=== PATIENT | female | born 1995 | race Caucasian/White ===

== ENCOUNTER 2017-11-05 11:53 | Outpatient (CLI) | END 2017-11-05 14:25 | disposition home or self-care (01) ==

== ENCOUNTER 2017-11-13 15:35 | Observation (INO) | END 2017-11-14 11:35 | disposition home or self-care (01) ==

== ENCOUNTER 2017-11-15 05:00 | Inpatient (IN) | END 2017-11-17 19:00 | disposition home or self-care (01) | DRG 775 ==

== ENCOUNTER 2019-01-24 15:51 | Inpatient (IN) | payer OTHER ==
[~2019-01-24] VITALS: Ht 160 cm; Wt 89.5 kg
[~2019-01-24 15:51] MED LIST: CALC600T5 PO; PNV11TAB PO
--- NOTE | 2019-01-24 20:56 | HP ---
Date/Time of Note Date/Time of Note DATE: 01/24/19 TIME: 20:52 OB - History Hx of Present Chief Complaint: elevated BP in clinic Estimated Due Date: Feb 01, 2019 : 4 Para: 1 Spontaneous : 2 Therapeutic : 0 Care: Good Care Ultrasounds: Normal mid trimester US Obstetrical Complications: None Medical Complications: None Past Family/Social History * Past Medical, Surgical, Family and Obstetric Histories reviewed from chart. GBS Status: Negative OB Admission Exam Physical Exam HEENT: WNL Heart: Rhythm Normal Lungs: Clear, Equal Abdomen: WNL Extremities: Normal Reflexes: Normal Cervical Dilatation: 4cm Effacement: 50% Station: -2 Membranes: Intact Heart Rate: 120's Accelerations: Accelerations Present Decelerations: No Decelerations Varibility: Moderate Last 72 hours Lab Results CBC & BMP 01/24/19 17:13 Liver Function Test 01/24/19 17:13 Alanine Aminotransferase (ALT/SGPT) 10 L Albumin 3.7 Alkaline Phosphatase 181 H Aspartate Amino Transf (AST/SGOT) 18 Direct Bilirubin 0.00 Total Protein 6.6 OB Assessment/Plan Reason for admission: other Other Assessment: Early labor Gestational hypertension Plan: Other Other plan: Augment labor QASIM SHAHID MD Jan 24, 2019 20:56
[2019-01-24] MEDS ORDERED: LACTATED RINGER'S 1,000 ML IV PRN (21:18)
[2019-01-24] MEDS ORDERED: LIDOCAINE 1% (MPF) 30 ML INJ INJ PRN (21:30)
[2019-01-24] MEDS ORDERED: OXYTOCIN 30 UNITS/LR 500 ML IV PRN (21:30)
[2019-01-24] MEDS ORDERED: BUTORPHANOL 1 MG INJ IV PRN (21:30)
[2019-01-24] MEDS ORDERED: BUTORPHANOL 2 MG INJ IV PRN (21:30)
[2019-01-24] MEDS ORDERED: IBUPROFEN 600 MG TAB PO PRN (21:30)
[2019-01-24] MEDS ORDERED: CARBOPROST 250 MCG INJ IM PRN (21:30)
[2019-01-24] MEDS ORDERED: OXYTOCIN 30 UNITS/LR 500 ML IV SCH ×2 (21:30)
[2019-01-24] MEDS ORDERED: METHYLERGONOVINE 0.2 MG INJ IM PRN (21:30)
[2019-01-24] MEDS ORDERED: MISOPROSTOL 200 MCG TAB PR PRN (21:30)
[2019-01-24] MEDS: LACTATED RINGER'S 1,000 ML IV SCH (23:26)
--- NOTE | 2019-01-24 23:26 | PREAC ---
Date/Time of Note Date/Time of Note DATE: 01/24/19 TIME: 23:25 Anesthesia Eval and Record Evaluation Time Pre-Procedure Interview DATE: 01/24/19 TIME: 23:25 Age 23 Sex female NPO: 8 hrs Preoperative diagnosis intrauterine Planned procedure labor epidural Past Medical History Past Medical History: Includes : : (4), Para: (1), PIH (possible ) Surgery & Anesthesia Issues No known issue Meds Anticoagulation: No Beta Jasmina within 24 hr: No Reason Beta Jasmina not given: Pt. not on B-Jasmina Reported Medications Calcium Carbonate (CALCIUM) 600 Mg Tablet, 600 MG PO, TAB 11/05/17 [id number] ( 19) 1 Each Tablet, 1 TAB PO DAILY, TAB 11/05/17 Current Medications Lactated Ringer's 1,000 ml @ 125 mls/hr Q8H IV ; Start 01/24/19 at 21:18 Butorphanol Tartrate (Stadol) 1 mg Q2H PRN IV .PAIN; Start 01/24/19 at 21:30 Butorphanol Tartrate (Stadol) 2 mg Q2H PRN IV .PAIN; Start 01/24/19 at 21:30 Lidocaine (Xylocaine 1% (Mpf)) 30 ml ONCE PRN INJ .EPISIOTOMY; Start 01/24/19 at 21:30 Oxytocin/Lactated Ringer's 500 ml @ 500 mls/hr ONCE POST IV ; Start 01/24/19 at 21:30 Oxytocin/Lactated Ringer's 500 ml @ 125 mls/hr POST IV ; Start 01/24/19 at 21:30 Ibuprofen (Motrin) 600 mg ONCE PRN PO .PAIN 1-5; Start 01/24/19 at 21:30 Lactated Ringer's 1,000 ml @ 2,000 mls/hr Q30M PRN IV .ANESTHESIA Last administered on 01/24/19at 22:59; Admin Dose 2,000 MLS/HR; Start 01/24/19 at 21:18 Oxytocin/Lactated Ringer's 500 ml @ 0 mls/hr ONCE PRN IV .VAGINAL BLEEDING; Start 01/24/19 at 21:30 Methylergonovine Maleate (Methergine) 0.2 mg ONCE PRN IM .VAGINAL BLEEDING; Start 01/24/19 at 21:30 Carboprost Tromethamine (Hemabate) 250 mcg ONCE PRN IM .VAGINAL BLEEDING; Start 01/24/19 at 21:30 Misoprostol (Cytotec) 1,000 mcg ONCE PRN DE .VAGINAL BLEEDING; Start 01/24/19 at 21:30 Meds reviewed: Yes Allergies Coded Allergies: guaifenesin (Verified Allergy, Unknown, 11/05/17) rash/heart races Allergies Reviewed: Yes Labs/Studies Labs Reviewed: Reviewed by anesthesiologist Result Diagram: 01/24/19 1713 01/24/19 1713 Laboratory Tests 01/24/19 17:13 Blood Bank Test 01/24/19 17:11 Antibody Screen NEGATIVE Blood Type A NEGATIVE Rh Immune Globulin Candidate NO test: N/A Pre-procedure Exam Airway: Adequate mouth opening, Adequate thyromental dist Mallampati: Mallampati II Teeth: Normal Lung: Normal Heart: Normal ASA Physical Status ASA physical status: 2 Emergency: None Planned Anesthetic Neuraxial: Epidural Planned Pain Management Epidural, Parenteral pain med Pre-operative Attestations Prior to commencing anesthesia and surgery, the patient was re-evaluated, there was verification of: *The patient's identity *The results of appropriate recent lab work and preoperative vital signs *The above evaluation not changing prior to induction *Anesthetic plan, risk benefits, alternative and complications discussed with patient/family; questions answered; patient/family understands, accepts and wishes to proceed. EMILY ODELL MD Jan 24, 2019 23:26
[2019-01-24] MEDS ORDERED: NALOXONE (0.4 MG/ML) INJ IV PRN (23:30)
[2019-01-24] MEDS ORDERED: FENTAnyl 2MCG/ML-ROPIV 0.2% 100 ML BAG EPI SCH (23:30)
[2019-01-24] MEDS ORDERED: DIPHENHYDRAMINE 50 MG INJ IV PRN (23:30)
[2019-01-24] MEDS ORDERED: ONDANSETRON 4 MG INJ IV PRN (23:30)
[2019-01-24] MEDS ORDERED: FENTAnyl 2MCG/ML-ROPIV 0.2% 100 ML ONE (23:31)
[2019-01-25 00:06] VITALS: Ht 160 cm; Wt 89.5 kg
[2019-01-25 00:07] VITALS: BP 141/69; PULSE 102; RESP 18
--- NOTE | 2019-01-25 00:07 | TRIAGE ---
OB Triage Datetime Report Generated by CPN: 01/25/2019 00:07 Datetime: 01/24/2019 22:44 Labor Evaluation Frequency: 2-4 Monitor Mode: External Quality: Mild Pattern: Normal: <= 5 Contractions in 10 Minutes Resting Tone Goldfield: Relaxed Heart Rate FHR Baseline Rate: 135 Monitor Mode: External US FHR Baseline Changes: No Baseline Change Variability: Moderate 6-25 bpm Accelerations: 15X15 Decelerations: None Category: Category I Pain Presence: Intermittent Pain Type: Contraction Pain Location: Abdomen Datetime: 01/24/2019 22:20 Stage of : OB Triage Datetime: 01/24/2019 21:49 Stage of : OB Triage Labor Evaluation Frequency: 2-4 Monitor Mode: External Quality: Moderate Pattern: Normal: <= 5 Contractions in 10 Minutes Resting Tone [place]field: Relaxed Heart Rate FHR Baseline Rate: 140 Monitor Mode: External US FHR Baseline Changes: No Baseline Change Variability: Moderate 6-25 bpm Accelerations: 15X15 Decelerations: None Category: Category I Pain Assessment Pain Scale: 6 Pain Presence: Intermittent Pain Type: Contraction Pain Location: Abdomen Datetime: 01/24/2019 21:00 Stage of : OB Triage Datetime: 01/24/2019 20:51 Vaginal Exam Dilatation (cms): 3.5 Datetime: 01/24/2019 20:48 Labor Evaluation Frequency: 2-4 Monitor Mode: External Duration (sec)2399: 60 Quality: Moderate Pattern: Normal: <= 5 Contractions in 10 Minutes Resting Tone Goldfield: Relaxed Heart Rate FHR Baseline Rate: 140 Monitor Mode: External US FHR Baseline Changes: No Baseline Change Variability: Moderate 6-25 bpm Accelerations: 15X15 Decelerations: None Category: Category I Vaginal Exam Dilatation (cms): 3.4 Effacement (%): 50 Station: -2 Exam By: Dr Georges Membrane Status: Intact Vaginal Bleeding: None Cervix, Consistency: Soft Cervix, Position: Posterior Presentation 'A': Cephalic Datetime: 01/24/2019 19:50 Stage of : OB Triage Monitor Mode: External Resting Tone Goldfield: Relaxed Heart Rate FHR Baseline Rate: 140 Monitor Mode: External US Pain Assessment Pain Scale: 6 Pain Presence: Intermittent Pain Type: Cramping Pain Location: Abdomen Datetime: 01/24/2019 19:22 Stage of : OB Triage Datetime: 01/24/2019 17:29 Maternal Assessment Level of Consciousness: Fully Conscious DTR's/Clonus: DTRs 1+ Headache: Denies Blurred Vision: No Respiratory Effort: Unlabored Breath Sounds, Left: Clear and Equal Breath Sounds, Right: Clear and Equal Nausea/Vomiting: Denies RUQ Epigastric Pain: Denies Facial Edema: None Labor Evaluation Frequency: 5-7 Monitor Mode: External Duration (sec)2399: 50-70 Quality: Moderate Pattern: Normal: <= 5 Contractions in 10 Minutes Resting Tone Goldfield: Relaxed Heart Rate FHR Baseline Rate: 140 Monitor Mode: External US Variability: Moderate 6-25 bpm Accelerations: 15X15 Decelerations: None Category: Category I Pain Assessment Pain Scale: 5 Pain Presence: Intermittent Pain Type: Cramping Pain Location: Abdomen Pain Goal: 3 Membrane Status: Intact Datetime: 01/24/2019 17:06 Vaginal Exam Dilatation (cms): 1.0 Effacement (%): 50 Station: -2 Exam By: LULU RASHID Vaginal Bleeding: None Cervix, Consistency: Soft Cervix, Position: Midposition Presentation 'A': Cephalic Datetime: 01/24/2019 17:00 Stage of : OB Triage Maternal Assessment Level of Consciousness: Fully Conscious DTR's/Clonus: DTRs 1+ Headache: Denies Blurred Vision: No Nausea/Vomiting: Denies RUQ Epigastric Pain: Denies Facial Edema: None Labor Evaluation Frequency: 4-6 Monitor Mode: External Duration (sec)2399: 50-90 Quality: Mild Pattern: Normal: <= 5 Contractions in 10 Minutes Resting Tone Goldfield: Relaxed Heart Rate FHR Baseline Rate: 140 Monitor Mode: External US Variability: Moderate 6-25 bpm Accelerations: 15X15 Decelerations: None Category: Category I Pain Assessment Pain Scale: 5 Pain Presence: Intermittent Pain Type: Contraction Pain Location: Back Pain Goal: 3 Membrane Status: Intact Datetime: 01/24/2019 16:30 Stage of : OB Triage Maternal Assessment Level of Consciousness: Fully Conscious DTR's/Clonus: DTRs 1+ Headache: Denies Breath Sounds, Left: Clear and Equal Breath Sounds, Right: Clear and Equal Nausea/Vomiting: Denies RUQ Epigastric Pain: Denies Labor Evaluation Frequency: 4-6 Monitor Mode: External Duration (sec)2399: 50-70 Duration (sec)2399: 50-90 Quality: Moderate Quality: Mild Pattern: Normal: <= 5 Contractions in 10 Minutes Resting Tone Goldfield: Relaxed Heart Rate FHR Baseline Rate: 140 Monitor Mode: External US Variability: Moderate 6-25 bpm Accelerations: 15X15 Decelerations: None Category: Category I Pain Assessment Pain Scale: 5 Pain Presence: Intermittent Pain Type: Cramping Pain Type: Contraction Pain Location: Abdomen Pain Location: Back Pain Goal: 3 Membrane Status: Intact Datetime: 01/24/2019 15:59 Assessment Type: Triage Maternal Assessment Level of Consciousness: Fully Conscious DTR's/Clonus: DTRs 2+; No Clonus Headache: Denies Blurred Vision: No Respiratory Effort: Unlabored; Regular Rhythm; Equal Expansion Breath Sounds, Left: Clear and Equal Breath Sounds, Right: Clear and Equal Nausea/Vomiting: Denies RUQ Epigastric Pain: Denies Lower Extremities Edema: None Degree: None Upper Extremities Edema: None Degree: None Facial Edema: None Fall Risk Assessment History of Falling: (0) No Secondary Diagnosis: (0) No Ambulatory Aid: (0) Bedrest/Nurse Assist IV Therapy: (0) No Gait: (0) Normal/Bedrest/Immobile Mental Status: (0) Oriented to Own Ability Fall Score: 0 Fall Risk Score Definition: No Risk: No action required Datetime: 01/24/2019 15:53 EGA: 38.6 Datetime: 01/24/2019 15:43 Stage of : OB Triage Time of Arrival: 01/24/2019 15:43 Arrived By: Ambulatory Arrived From: Office Chief Complaint: PT CAME IN FROM [facility] OFFICE DUE TO HIGH B/P AT CLINIC AND SOME UC'S. PT DENIES ANY HEADACHES, EPIGASTRI PAIN OR BLURRED VISION AT THIS TIME, DENIES ANY GENERALIZED SWELLING WELL. PS TATES THAT BABY IS MOVING OK Movement: Present Contractions: Regular Rupture of Membranes: Denies Vaginal Bleeding: None Vaginal Discharge: Denies Recent Sexual Intercouse: Denies Abdominal Trauma: Not Applicable Patient Complaints: Contractions Additional Patient Complaints: NONE Time Provider Notified: 01/24/2019 15:59 Provider Notified: RASHIDA Initial Plan: PIH PANEL, BPP AND RENAN
--- NOTE | 2019-01-25 00:11 | PAC ---
Date/Time of Note Date/Time of Note DATE: 01/25/19 TIME: 00:11 Post-Anesthesia Notes Post-Anesthesia Note Activity: WNL Respiratory function: WNL Cardiovascular function: WNL Mental status: Baseline Pain reasonably controlled: Yes Hydration appropriate: Yes Nausea/Vomiting absent: Yes Comments BP: 122/65 HR: 84 RR: 16 T: 98 SaO2: 99% EMILY ODELL MD Jan 25, 2019 00:11
[2019-01-25] MEDS: LACTATED RINGER'S 1,000 ML IV SCH ×2 (04:25→12:29)
[2019-01-25] MEDS ORDERED: ROPIVACAINE 0.2% 100ML BAG EPI SCH (09:00)
[2019-01-25] MEDS ORDERED: FENTAnyl 2MCG/ML-ROPIV 0.2% 100 ML BAG EPI SCH (09:00)
[2019-01-25] MEDS ORDERED: NALOXONE (0.4 MG/ML) INJ IV PRN ×2 (09:00→19:30)
[2019-01-25] MEDS ORDERED: DIPHENHYDRAMINE 50 MG INJ IV PRN ×2 (09:00→19:30)
[2019-01-25] MEDS ORDERED: ONDANSETRON 4 MG INJ IV PRN ×2 (09:00→19:30)
[2019-01-25] MEDS ORDERED: MINERAL OIL LIGHT 10 ML VIAL TOP ONE (15:00)
[2019-01-25] MEDS ORDERED: OXYTOCIN 30 UNITS/LR 500 ML IV SCH (17:30)
[2019-01-25] MEDS ORDERED: CEFAZOLIN 2 GM/50 ML (PMX) 50 ML IVPB SCH (17:30)
[2019-01-25] MEDS ORDERED: CEFAZOLIN 2 GM/50 ML (PMX) 50 ML IVPB ONE (17:37)
--- NOTE | 2019-01-25 18:03 | HPN ---
Date/Time of Note Date/Time of Note DATE: 01/25/19 TIME: 17:59 Interval H&P Admission Note Pt. seen H&P reviewed: Systems changes noted below iup at 39 wks ga, gestational hypertension, in labor, arrest in dilation, suspected macrosomia, Judaism- decline any blood products, all the risk including but not limited to explained to patient JULIO CÉSAR MONTAÑO MD Jan 25, 2019 18:03
[2019-01-25] MEDS ORDERED: OXYTOCIN 10 UNIT INJ ONE ×2 (18:27→18:36)
[2019-01-25] MEDS ORDERED: morphine SULFATE/PF (10 MG/10 ML) INJ ONE (18:32)
[2019-01-25] MEDS ORDERED: PHENYLephrine (100 MCG/ML) 5ML SYG ONE (18:46)
--- NOTE | 2019-01-25 19:08 | OPPN ---
Date/Time of Note Date/Time of Note DATE: 01/25/19 TIME: 19:05 Operative Report Planned Procedure Procedure date Jan 25, 2019 Procedure(s) primary low transverse CD Performed by see signature line Computer Art Instructor: DHEERAJ OWEN 2nd Computer Art Instructor none Anesthesiologist: ONOFRE MOURA MD Pre-procedure diagnosis iup at 39 wks ga, gestational hypertension, in labor, arrest in dilation, suspected macrosomia, Voodoo- [id number] Anesthesia Type: [id number] epidural Post-Procedure Post-procedure diagnosis same Findings a viable female 9/9, weight 9lb 6 oz. normal uterus tubes and ovaries Estimated Blood Loss: 500 - 600 mls (500) Specimen(s) none Grafts/Implant(s) none Complication(s) none JULIO CÉSAR MONTAÑO MD Jan 25, 2019 19:08
[2019-01-25] MEDS: OXYTOCIN 30 UNITS/LR 500 ML IV SCH (19:09)
--- NOTE | 2019-01-25 19:21 | PAC ---
Date/Time of Note Date/Time of Note DATE: 01/25/19 TIME: 19:21 Post-Anesthesia Notes Post-Anesthesia Note Last documented vital signs Vital Signs Date Temp Pulse Resp B/P (MAP) Pulse Ox O2 O2 Flow FiO2 Time Delivery Rate 01/25/19 98.3 102 18 141/69 Room Air 00:07 (93) Activity: WNL Respiratory function: WNL Cardiovascular function: WNL Mental status: Baseline Pain reasonably controlled: Yes Hydration appropriate: Yes Nausea/Vomiting absent: Yes Comments BP:134/67, P:78, Spo2:100%, T:98,8 ONOFRE MOURA MD Jan 25, 2019 19:21
[2019-01-25] MEDS ORDERED: LANOLIN HPA 1 PKT TOP PRN (19:30)
[2019-01-25] MEDS ORDERED: OXYTOCIN 30 UNITS/LR 500 ML IV PRN (19:30)
[2019-01-25] MEDS ORDERED: morphine 2 MG INJ IV PRN (19:30)
[2019-01-25] MEDS ORDERED: NACL 0.9% 3 ML SYG IV SCH (19:30)
[2019-01-25] MEDS ORDERED: OXYCODONE/ACETAMINOPHEN (5/325) TAB PO PRN (19:30)
[2019-01-25] MEDS ORDERED: METHYLERGONOVINE 0.2 MG INJ IM PRN (19:30)
[2019-01-25] MEDS ORDERED: MISOPROSTOL 200 MCG TAB PR PRN (19:30)
[2019-01-25] MEDS ORDERED: CARBOPROST 250 MCG INJ IM PRN (19:30)
[2019-01-25] MEDS: KETOROLAC 30 MG INJ IV PRN (19:41)
--- NOTE | 2019-01-25 19:46 | OPR ---
DATE OF OPERATION: 01/25/2019 PREOPERATIVE DIAGNOSES: 1. Intrauterine at 39 weeks gestational age. 2. Gestational hypertension in labor. 3. Arrest in dilation. 4. Suspected macrosomia, Buddhism. POSTOPERATIVE DIAGNOSES: 1. Intrauterine at 39 weeks gestational age. 2. Gestational hypertension in labor. 3. Arrest in dilation. 4. Suspected macrosomia, Buddhism. PROCEDURE: Primary low transverse delivery. SURGEON: Julio César Dennis MD COMPRESSED GAS EQUIPMENT MECHANIC: Dr. Castillo. ANESTHESIA: Epidural. COMPLICATIONS: None. ESTIMATED BLOOD LOSS: 500 mL. FINDINGS: A viable female, 9 and 9 respectively at 1 and 5 minutes, weight 9 pounds 6 ounces. Normal uterus, tubes and ovaries. DESCRIPTION OF PROCEDURE: After explaining the risks, benefits and alternatives, the patient and consent signed in chart, the patient was taken to the operating room where epidural anesthesia was found to be adequate. She was then prepared and draped in normal sterile fashion in dorsal position with a leftward tilt. A Pfannenstiel skin incision was then made with a scalpel and carried to the underlying of the fascia. The fascia was incised in midline and incision was extended laterally with Caballero scissors. The superior aspect of the fascial incision was grasped with curved clamps and elevated and the underlying rectus muscles dissected off bluntly. Attention was then turned to the inferior aspect of incision, which in similar fashion was grasped, tented up with curved clamps and the rectus muscles dissected off bluntly. The muscle was then in midline, peritoneum identified, tented up sharply with Metzenbaum scissors. The incision was then extended superiorly and inferiorly with good visualization of the bladder. The bladder blade was then inserted and the vesicouterine peritoneum identified, grasped with pickups and sharply with Metzenbaum scissors. This incision was extended laterally and the bladder flap created digitally. The bladder blade was then reinserted and inspection of the lower segment incised in transverse fashion with a scalpel. The uterine incision was extended laterally. The bladder blade was removed. The nose and mouth were suctioned and cord clamped and cut. The infant was handed off to waiting sanitation truck cleaner. The placenta was then removed. The uterus was exteriorized and cleared of all clots and debris. The uterine incision was repaired with 1-0 chromic in a running locked fashion. A second layer of same suture was used to imbrication obtaining excellent hemostasis. The uterus was then returned to the abdomen. The gutters were cleared of all clots. The peritoneum and rectus abdominis was reapproximated with 2-0 Vicryl in interrupted fashion. The fascia was reapproximated with 0 Vicryl in running fashion. The subcutaneous tissue was reapproximated with 2-0 plain gut in a running fashion. The skin was closed with absorbable anjana. The patient tolerated procedure well. Sponge, lap and needle counts correct x2. The patient was taken to recovery room in stable condition. Dictated By: JULIO CÉSAR WAGNER/HÉCTOR Conf#: [id number] DID#: [id number] MTDD
[2019-01-25] MEDS: CEFAZOLIN 2 GM/50 ML (PMX) 50 ML IVPB SCH (19:53)
[2019-01-25 22:00] VITALS: BP 130/72; PULSE 85; RESP 19
[2019-01-26] MEDS: OXYTOCIN 30 UNITS/LR 500 ML IV SCH (00:04)
[2019-01-26] MEDS: CEFAZOLIN 2 GM/50 ML (PMX) 50 ML IVPB SCH ×2 (04:10→11:37)
[2019-01-26 04:30] VITALS: BP 121/56; PULSE 102; RESP 19
[2019-01-26] MEDS: KETOROLAC 30 MG INJ IV PRN ×2 (05:33→11:42)
[2019-01-26 08:00] VITALS: BP 110/53; PULSE 89; RESP 16
[2019-01-26 12:00] VITALS: BP 116/57; PULSE 98; RESP 16
[2019-01-26 16:00] VITALS: BP 123/70; PULSE 99; RESP 16
[2019-01-26] MEDS: OXYCODONE/ACETAMINOPHEN (5/325) TAB PO PRN (18:52)
[2019-01-26 20:30] VITALS: BP 110/61; PULSE 111; RESP 19
--- NOTE | 2019-01-26 22:41 | QN ---
Documentation Comment progress note pod 1 patient seen and evaluated aao X 3 no complaints positive ambulation and voiding tolerating diet vs stable afebrile ab soft nt uterine fundus firm at umbillicus dressing clean and dry a/ sp primary cd pod 1 stable afebrile p/ iron supplement encourage ambulation JULIO CÉSAR MONTAÑO MD Jan 26, 2019 22:41
[2019-01-27] MEDS: IBUPROFEN 600 MG TAB PO SCH ×4 (00:28→18:03)
[2019-01-27] MEDS: OXYCODONE/ACETAMINOPHEN (5/325) TAB PO PRN (03:05)
[2019-01-27 04:30] VITALS: BP 107/52; PULSE 92; RESP 18
[2019-01-27 08:00] VITALS: BP 112/59; PULSE 87; RESP 20
--- NOTE | 2019-01-27 08:06 | QN ---
Documentation Comment progress note pod 2 patient seen and evaluated aao X 3 no complaints positive ambulation and voiding tolerating diet vs stable afebrile ab soft nt uterine fundus firm at umbilicus dressing clean and dry extremity no edema no calf tenderness a/ sp primary cd pod 2 stable afebrile p/remove dressing today encourage ambulation JULIO CÉSAR MONTAÑO MD Jan 27, 2019 08:06
[2019-01-27] MEDS: FERROUS SULFATE (EC) 325 MG TAB PO SCH ×2 (09:53→20:20)
[2019-01-27 16:00] VITALS: BP 115/65; PULSE 101; RESP 20
[2019-01-27 20:15] VITALS: BP 127/76; PULSE 111; RESP 18
[2019-01-28] MEDS: IBUPROFEN 600 MG TAB PO SCH ×3 (01:00→12:27)
[2019-01-28 04:30] VITALS: BP 129/72; RESP 18
[2019-01-28 07:50] VITALS: BP 119/63; PULSE 95; RESP 20
--- NOTE | 2019-01-28 09:11 | QN ---
Documentation Comment progress note pod 3 patient seen and evaluated aao X 3 no complaints positive ambulation and voiding tolerating diet vs stable afebrile ab soft nt uterine fundus firm at umbilicus c/d/i extremity no edema no calf tenderness a/ sp primary cd pod 3 stable afebrile p/discharge home tomorrow JULIO CÉSAR MONTAÑO MD Jan 28, 2019 09:11
--- NOTE | 2019-01-28 09:11 | PD.PPDC ---
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
[2019-01-28] MEDS: FERROUS SULFATE (EC) 325 MG TAB PO SCH (09:14)
--- NOTE | 2019-01-28 10:43 | DS ---
DATE OF ADMISSION: 01/24/2019 DATE OF DISCHARGE: 01/28/2019 PRIMARY DIAGNOSIS: Intrauterine at 39 weeks gestational age, gestational hypertension, in labor, arrest in dilatation, suspected macrosomia, Mormon. PROCEDURE: Primary low transverse delivery. CONDITION ON DISCHARGE: Stable. ACTIVITY: None per vagina, no heavy lifting x6 weeks. DIET: Regular. MEDICATIONS ON DISCHARGE: 1. Motrin. 2. Iron. 3. Colace. DISCHARGE SUMMARY: Ms. Kathy Prasad underwent a primary delivery on 01/25/2019. She had a vi able female, 9 and 9 respectively at 1 and 5 minutes, weight 9 pounds 6 ounces. She had an une ventful postop day 1, 2, and 3. Her incision is clean, dry, and intact. She is ambulating, tolerati ng diet, positive flatulence, positive bowel movement. She will be discharged today with strict pree clamptic precautions. Patient will follow up in the clinic in 2 weeks for /postop care. Dictated By: JULIO CÉSAR WAGNER/HÉCTOR Conf#: [id number] DID#: [id number]
== END 2019-01-28 13:55 | disposition home or self-care (01) | DRG 788 ==
LOC: OBT 15:51 → L-D 15:51 → OBT 21:00 → L-D 22:59 → PP1 01-25 21:57
PROVIDERS: ADMIT Obstetrics & Gynecology; ATTEND Obstetrics & Gynecology
PROC: 10D00Z1 Extraction of Products of Conception, Low, Open Approach (ICD-10-PCS; principal; 2019-01-25)
DX: O13.4 Gestational [pregnancy-induced] hypertension without significant proteinuria, complicating childbirth (principal); O62.0 Primary inadequate contractions; O36.63X0 Maternal care for excessive fetal growth, third trimester, not applicable or unspecified; Z3A.39 39 weeks gestation of pregnancy; Z37.0 Single live birth
CPT/HCPCS: 36415; 62319; 76815; 76818; 80053; 81001; 84560; 85025; 85610; 85730; 86592; 86850; 86885; 86900; 86901; 87340; 99464; G0463; J0690; J1885; J2210; J2274; J2370; J2405; J2590; J2790; J3010; J7120